=== PATIENT | female | born 1945 | race Caucasian/White ===

== ENCOUNTER 2018-07-06 06:35 | Day surgery (SDC) | payer OTHER ==
[2018-07-06] MEDS ORDERED: BUPIVACAINE 0.75% (MPF) 10 ML INJ (06:38)
[2018-07-06] MEDS ORDERED: EPINEPHrine 1 MG INJ (06:39)
[2018-07-06] MEDS ORDERED: SODIUM BICARBONATE (IV ADD) 50 ML (06:39)
[2018-07-06] MEDS ORDERED: LIDOCAINE 2% (SDV) 5 ML INJ ×2 (07:02→07:27)
[2018-07-06] MEDS ORDERED: TIMOLOL 0.5% 5 ML OPH (07:02)
[2018-07-06] MEDS ORDERED: LIDOCAINE 1% (MPF) 10 ML INJ (07:02)
[2018-07-06] MEDS: NEPAFENAC 0.1% 3 ML OPH OPER ×2 (07:12→07:18)
[2018-07-06] MEDS: PHENYLephrine 10% 5 ML OPH OPER ×3 (07:12→07:24)
[2018-07-06] MEDS: CYCLOPENTOLATE 2% 2 ML OPH OPER ×3 (07:12→07:24)
[2018-07-06] MEDS: MOXIFLOXACIN 0.5% 3 ML OPH OPER (07:12)
[2018-07-06] MEDS ORDERED: PROPOFOL 20 ML (07:26)
[2018-07-06] MEDS ORDERED: FENTAnyl 50 MCG/ML VIAL (07:26)
[2018-07-06] MEDS ORDERED: MIDAZOLAM 1 MG/ML 2 ML INJ (07:27)
[2018-07-06] MEDS ORDERED: DIPHENHYDRAMINE 50 MG INJ IV (07:30)
[2018-07-06] MEDS ORDERED: hydrALAzine 20 MG INJ IV (07:30)
[2018-07-06] MEDS ORDERED: ALBUTEROL 0.083% (NEB) 2.5 MG/3 ML AMP HHN (07:30)
[2018-07-06] MEDS ORDERED: FENTAnyl 50 MCG/ML VIAL IV (07:30)
[2018-07-06] MEDS ORDERED: ACETAMINOPHEN 325 MG TAB PO (07:30)
[2018-07-06] MEDS ORDERED: ACETAMINOPHEN 500 MG TAB PO (07:30)
[2018-07-06] MEDS ORDERED: LABETALOL HCL 20MG INJ IV (07:30)
[2018-07-06] MEDS: LIDOCAINE 1% (MPF) 10 ML INJ INJ (07:30)
[2018-07-06] MEDS ORDERED: OXYCODONE/ACETAMINOPHEN (5/325) TAB PO (07:30)
[2018-07-06] MEDS ORDERED: ONDANSETRON 4 MG INJ IV (07:30)
[2018-07-06] MEDS: TIMOLOL 0.5% 5 ML OPH LEFT EYE (08:03)
[2018-07-06] MEDS ORDERED: CARBACHOL 0.01% 1.5 ML OPH INJ ×2 (08:20→08:43)
[2018-07-06] MEDS: CARBACHOL 0.01% 1.5 ML OPH INJ LEFT EYE (08:30)
== END 2018-07-06 10:34 | disposition home or self-care (01) ==
LOC: SDS 06:35
DX: H25.12 Age-related nuclear cataract, left eye (principal); M06.9 Rheumatoid arthritis, unspecified
CPT/HCPCS: 66984